=== PATIENT | male | born 1975 | race African-American/Black ===

== ENCOUNTER 2016-06-28 11:33 | Emergency (ER) | payer OTHER ==
[~2016-06-28] VITALS: Ht 167.6 cm; Wt 70.9 kg
[~2016-06-28 11:33] MED LIST: ADVAIR 250-501 EACH IH; ADVAIR 250/501 DISK IH; ALBUTEROL17 G1 IH; MEDROL DOSEPAK4 MG PO; MONTELUKAST SOD10 MG PO; PREDNISONE20 MG PO; PROAIR HFA8.5 GM IH; VENTOLIN HFA18 GM IH
[2016-06-28] MEDS ORDERED: PROVENTIL HFA6.7 GM IH (13:24)
[2016-06-28] MEDS ORDERED: PREDNISONE50 MG PO (13:24)
[2016-06-28] MEDS ORDERED: ADVAIR 250/501 DISK IH (13:24)
[2016-06-28 13:47] VITALS: BP 121/85
== END 2016-06-28 13:58 | disposition home or self-care (01) ==
LOC: EME → EDBD 11:33 → EME 11:33
DX: J45.901 Unspecified asthma with (acute) exacerbation (principal)
CPT/HCPCS: 94640; 99281; 99283; J7512; J7644

== ENCOUNTER 2017-12-20 15:08 | Emergency (ER) | payer BC ==
[~2017-12-20] VITALS: Ht 167.6 cm; Wt 73.6 kg
[~2017-12-20 15:08] MED LIST changes: +PREDNISONE50 MG PO; +PROVENTIL HFA6.7 GM IH
[2017-12-20 15:29] LABS: BASOPHIL (%) 0.4 % (0-1); EOSINOPHIL (%) 1.7 % (0-5); EOSINOPHIL COUNT 0.2 K/uL (0-0.3); HEMATOCRIT 44.3 % (38.0-50.0); HEMOGLOBIN 15.4 G/DL (12.5-16.6); IMMATURE GRANULOCYTE (%) 0.2 % (0.0-0.7); LYMPHOCYTE COUNT 2.8 K/uL (1.0-2.8); MCH 26.1 PG (29.0-34.0); MCHC 34.8 G/DL (30.0-36.0); MONOCYTE (%) 5.5 % (3-12); MONOCYTE COUNT 0.5 K/uL (0-0.8); NEUTROPHIL (%) 61.2 % (45-76); NEUTROPHIL COUNT 5.5 K/uL (1.8-6.4); PLATELET COUNT 218 K/uL (156-360); RBC DIS.WIDTH-CV 13.7 % (11.8-14.6); RBC DIS.WIDTH-SD 36.7 % (39-53); RED BLOOD COUNT 5.91 M/uL (4.00-5.50); WHITE BLOOD COUNT 8.9 K/uL (4.1-10.2)
[2017-12-20 15:38] LABS: AMYLASE 71 IU/L (1-118); CHLORIDE 105 mEq/L (99-109); SODIUM 139 mEq/L (136-147)
[2017-12-20 15:39] LABS: PTT 31.1 SEC (25-37)
[2017-12-20 15:40] LABS: GLUCOSE 82 mg/dL (70-99)
[2017-12-20 15:43] LABS: SERUM ETHYL ALCOHOL < 10 mg/dL
[2017-12-20 15:44] LABS: CREATININE 1.4 mg/dL (0.6-1.3); GFR ESTIMATE (CALCULATED) > 59 mL/min/ (58.99-99999); UREA NITROGEN (BUN) 14 mg/dL (9-23)
[2017-12-20 15:47] LABS: LIPASE 21 U/L (1.0-51.0)
[2017-12-20 15:50] LABS: TROP-I INTERPRETATION NEGATIVE; TROPONIN-I < 0.01 ng/mL (0.0-0.30)
[2017-12-20 17:37] LABS: APPEARANCE CLEAR ((CLEAR)); BILIRUBIN NEGATIVE; BLOOD NEGATIVE; COLOR YELLOW ((YELLOW)); GLUCOSE (STRIP) NEGATIVE; KETONES NEGATIVE; LEUKOCYTES NEGATIVE; NITRITE NEGATIVE; PROTEIN (STRIP) NEGATIVE; SPECIFIC GRAVITY 1.045 (1.000-1.030); UCUL ADDED? NO
[2017-12-20 18:10] LABS: AMPHETAMINE NEGATIVE (500 ng/mL); BARBITURATES NEGATIVE (200 ng/mL); BENZODIAZEPINES NEGATIVE (150 ng/mL); BUPRENORPHINE NEGATIVE (10 ng/mL); COCAINE NEGATIVE (150 ng/mL); METHADONE NEGATIVE (200 ng/mL); METHAMPHETAMINE NEGATIVE (500 ng/mL); OPIATES (MORPHINE) NEGATIVE (100 ng/mL); OXYCODONE NEGATIVE (100 ng/mL); PHENCYCLIDINE NEGATIVE (25 ng/mL); PROPOXYPHENE NEGATIVE (300 ng/mL); THC CANNABINOIDS NEGATIVE (50 ng/mL); TRICYCLIC ANTIDEPRESSANTS NEGATIVE (300 ng/mL)
[2017-12-20 20:05] VITALS: BP 118/81
== END 2017-12-20 20:26 | disposition left against medical advice (07) ==
LOC: EME 15:08
PROVIDERS: Emergency Medicine
DX: R20.0 Anesthesia of skin (principal); J45.909 Unspecified asthma, uncomplicated
CPT/HCPCS: 70450; 70496; 70498; 80047; 80048; 81003; 82150; 82948; 83690; 84484; 85025; 85610; 85730; 86850; 86900; 86901; 93005; 99281; 99285; G0480